=== PATIENT | female | born 1965 | race African-American/Black ===

== ENCOUNTER 2018-11-08 07:31 | Inpatient (IN) | payer MEDICARE, MEDICAID ==
[~2018-11-08] VITALS: Ht 162.6 cm; Wt 70.3 kg
[2018-11-08] MEDS ORDERED: ALBUTEROL (0.083%) 2.5MG/3ML NEB HHN STA (07:41)
[2018-11-08] MEDS ORDERED: MAGNESIUM 2 G PREMIX 50 ML IV STA (07:41)
[2018-11-08] MEDS ORDERED: IPRATROPIUM BROMIDE (0.02%) 0.5MG/2.5ML NEB HHN STA (07:41)
[2018-11-08] MEDS ORDERED: METHYLPREDNISOLONE SOD SUCC 125 MG/2 ML VIAL IV STA (07:41)
[2018-11-08] MEDS ORDERED: SODIUM CHLORIDE 0.9% 1000ML BAG (SEPSIS BOLUS) IV ONE (07:45)
[2018-11-08 08:03] LABS: BASOPHILS % 0.6 % (0.0-2.0); EOSINOPHILS % 9.6 % (0.0-5.0); HEMATOCRIT. 34.7 % (36.0-48.0); HEMOGLOBIN. 11.1 g/dL (12.0-16.0); LYMPHOCYTES % 25.3 % (20.0-50.0); MEAN CORPUSCULAR HEMOGLOBIN 21.7 pg (28.0-32.0); MEAN CORPUSCULAR VOLUME 67.4 fL (81.0-99.0); MEAN PLATELET VOLUME 10.1 fl (7.4-10.4); MONOCYTES % 10.5 % (2.0-8.0); PLATELET 136 x1000/uL (130-400); RED BLOOD CELL COUNT 5.14 mill/uL (4.2-5.4); RED CELL DISTRIBUTION WIDTH 16.4 % (11.6-14.6)
[2018-11-08 08:08] LABS: CHLORIDE 108 mEq/L (98-107)
[2018-11-08 08:09] LABS: INR 0.9; PROTHROMBIN TIME 9.5 sec (9.6-11.0)
[2018-11-08] MEDS ORDERED: AZITHROMYCIN 500 MG in DEXT 5% WATER 250 ML IV STA (08:36)
[2018-11-08] MEDS ORDERED: ACETAMINOPHEN 325MG TABLET PO PRN (09:45)
[2018-11-08] MEDS ORDERED: METHYLPREDNISOLONE SOD SUCC 40 MG/ML VIAL IV SCH (09:45)
[2018-11-08] MEDS ORDERED: IPRATROPIUM/ALBUTEROL 0.5-3(2.5)MG/3ML NEB HHN PRN (09:45)
[2018-11-08] MEDS ORDERED: ONDANSETRON HCL 4MG/2ML INJ IV PRN (09:45)
[2018-11-08] MEDS ORDERED: GUAIFENESIN-DM 200MG-20MG/10ML UDC PO PRN (09:45)
[2018-11-08 10:23] LABS: PLATELET ESTIMATE NORMAL
[2018-11-08 12:00] VITALS: BP 145/53
[2018-11-08 13:02] VITALS: BP 145/53
[2018-11-08] MEDS ORDERED: LEVO75TA MT (14:31)
[2018-11-08] MEDS ORDERED: ATOR10TA69 MT (14:31)
[2018-11-08] MEDS ORDERED: METF-815 PO (14:31)
[2018-11-08] MEDS ORDERED: LISI10TA5 MT (14:31)
[2018-11-08] MEDS ORDERED: ASPI-1158 MT (14:31)
[2018-11-08 16:00] VITALS: BP 127/54
[2018-11-08] MEDS: METHYLPREDNISOLONE SOD SUCC 40 MG/ML VIAL IV SCH ×2 (16:01→21:41)
[2018-11-08] MEDS: LEVOTHYROXINE SODIUM 75MCG TABLET PO SCH (16:02)
[2018-11-08] MEDS: ENOXAPARIN 40MG/0.4ML SYR SUBCUT SCH (16:03)
[2018-11-08] MEDS: IPRATROPIUM/ALBUTEROL 0.5-3(2.5)MG/3ML NEB HHN SCH ×2 (16:12→20:29)
[2018-11-08 17:18] LABS: BG BASE EXCESS -4.6 mmol/L (-2.0-2.0); BG CARBOXYHEMOGLOBIN 0.6 % (0.5-1.5); BG DEOXYHEMOGLOBIN 3.1 % (0.0-5.0); BG HCO3 ACT 20.1 mmol/L (22.0-26.0); BG METHEMOGLOBIN 0.4 % (0.0-1.5); BG OXYGEN SATURATION 96.9 % (92.0-98.5); BG OXYHEMOGLOBIN 95.9 % (94.0-97.0); BG PCO2 35.9 mmHg (35.0-45.0); BG PH 7.366 (7.350-7.450); BG PO2 92.2 mmHg (75.0-100.0); BG SAMPLE SITE RIGHT RADIAL; BG TOTAL HEMOGLOBIN 11.9 g/dL (12.0-18.0); BG VENT MODE NASAL CANNULA
[2018-11-08] MEDS: METFORMIN HCL 500MG TABLET PO SCH (18:08)
[2018-11-08] MEDS ORDERED: LEVO50TA MT (19:12)
[2018-11-08 20:00] VITALS: BP 130/64
[2018-11-08] MEDS: ATORVASTATIN CALCIUM 10MG TABLET PO SCH (21:41)
[2018-11-08] MEDS: GUAIFENESIN 600MG ER TABLET PO SCH (21:41)
[2018-11-09] VITALS: BP 128/69
[2018-11-09] MEDS: IPRATROPIUM/ALBUTEROL 0.5-3(2.5)MG/3ML NEB HHN SCH ×5 (00:31→20:09)
[2018-11-09 04:00] VITALS: BP 116/68
[2018-11-09 06:08] LABS: BASOPHILS % 0.2 % (0.0-2.0); HEMOGLOBIN. 10.8 g/dL (12.0-16.0); MEAN PLATELET VOLUME 9.9 fl (7.4-10.4); MONOCYTES % 2.8 % (2.0-8.0); PLATELET 137 x1000/uL (130-400); RED BLOOD CELL COUNT 4.92 mill/uL (4.2-5.4); RED CELL DISTRIBUTION WIDTH 16.6 % (11.6-14.6)
[2018-11-09] MEDS: METHYLPREDNISOLONE SOD SUCC 40 MG/ML VIAL IV SCH (06:16)
[2018-11-09] MEDS: METFORMIN HCL 500MG TABLET PO SCH ×2 (06:16→18:05)
[2018-11-09] MEDS: LEVOTHYROXINE SODIUM 75MCG TABLET PO SCH (06:19)
[2018-11-09 06:20] LABS: CHLORIDE 108 mEq/L (98-107)
[2018-11-09 08:00] VITALS: BP 128/67
[2018-11-09] MEDS: GUAIFENESIN 600MG ER TABLET PO SCH ×3 (08:54→20:19)
[2018-11-09] MEDS: LISINOPRIL 10MG TABLET PO SCH (08:55)
[2018-11-09] MEDS: LEVOTHYROXINE SODIUM 50MCG TABLET PO SCH ×2 (08:55→09:00)
[2018-11-09] MEDS ORDERED: AZITHROMYCIN 500 MG TABLET PO SCH (09:00)
[2018-11-09 12:00] VITALS: BP 113/59
[2018-11-09] MEDS: ENOXAPARIN 40MG/0.4ML SYR SUBCUT SCH (15:35)
[2018-11-09 16:00] VITALS: BP 116/55
[2018-11-09] MEDS ORDERED: MONTELUKAST SODIUM 10MG TABLET PO SCH (17:00)
[2018-11-09 19:32] LABS: CLARITY URINE CLEAR (CLEAR); COLOR URINE YELLOW (YELLOW); KETONES URINE NEGATIVE (NEGATIVE); LEUKOCYTE ESTERASE URINE NEGATIVE (NEGATIVE); NITRITE URINE NEGATIVE (NEGATIVE); OCCULT BLOOD URINE NEGATIVE (NEGATIVE); PROTEIN URINE NEGATIVE (NEGATIVE); SPECIFIC GRAVITY URINE 1.012 (1.005-1.030); UROBILINOGEN URINE 0.2 E.U./dL (0.2-1.0)
[2018-11-09 19:45] LABS: *AMPHETAMINES SCREEN URINE NEGATIVE (NEGATIVE); *BARBITURATES SCREEN URINE NEGATIVE (NEGATIVE); *BENZODIAZEPINES SCREEN URINE NEGATIVE (NEGATIVE); *COCAINE SCREEN URINE NEGATIVE (NEGATIVE); METHADONE URINE SCREEN NEGATIVE (NEGATIVE); OPIATES URINE SCREEN NEGATIVE (NEGATIVE)
[2018-11-09 19:46] LABS: CANNABINOID URINE SCREEN PRESUMTIVE POSITIVE (NEGATIVE); PHENCYCLIDINE URINE SCREEN NEGATIVE (NEGATIVE)
[2018-11-09 20:00] VITALS: BP 118/53
[2018-11-09] MEDS: ATORVASTATIN CALCIUM 10MG TABLET PO SCH (20:09)
[2018-11-09] MEDS: AMOXICILLIN/POTASSIUM CLAVULANATE 875/125MG TAB PO SCH (20:09)
[2018-11-09] MEDS: FAMOTIDINE 20MG TABLET PO SCH (20:09)
[2018-11-09] MEDS ORDERED: LORATADINE 10MG TABLET PO SCH (21:00)
[2018-11-09] MEDS ORDERED: AZELASTINE HCL 137MCG/SPRAY NASAL PUMP BOTHNSTRLS SCH (21:00)
[2018-11-10] VITALS: BP 114/63
[2018-11-10] MEDS: IPRATROPIUM/ALBUTEROL 0.5-3(2.5)MG/3ML NEB HHN SCH ×3 (00:20→09:04)
[2018-11-10 04:00] VITALS: BP 98/57
[2018-11-10] MEDS: METFORMIN HCL 500MG TABLET PO SCH (06:32)
[2018-11-10 06:49] LABS: BASOPHILS % 0.3 % (0.0-2.0); EOSINOPHILS % 0.1 % (0.0-5.0); HEMATOCRIT. 31.8 % (36.0-48.0); HEMOGLOBIN. 10.3 g/dL (12.0-16.0); LYMPHOCYTES % 17.1 % (20.0-50.0); MEAN CORPUSCULAR HEMOGLOBIN 21.6 pg (28.0-32.0); MEAN CORPUSCULAR VOLUME 66.9 fL (81.0-99.0); MEAN PLATELET VOLUME 10.6 fl (7.4-10.4); MONOCYTES % 8.2 % (2.0-8.0); NEUTROPHILS % 74.3 % (40.0-76.0); PLATELET 146 x1000/uL (130-400); RED BLOOD CELL COUNT 4.75 mill/uL (4.2-5.4); RED CELL DISTRIBUTION WIDTH 16.3 % (11.6-14.6)
[2018-11-10 06:54] LABS: CHLORIDE 106 mEq/L (98-107)
[2018-11-10] MEDS: GUAIFENESIN 600MG ER TABLET PO SCH (08:24)
[2018-11-10] MEDS: AMOXICILLIN/POTASSIUM CLAVULANATE 875/125MG TAB PO SCH (08:25)
[2018-11-10] MEDS: FAMOTIDINE 20MG TABLET PO SCH (08:25)
[2018-11-10] MEDS: LISINOPRIL 10MG TABLET PO SCH (09:00)
[2018-11-10] MEDS ORDERED: LEVOTHYROXINE SODIUM 50MCG TABLET PO SCH (09:00)
[2018-11-10] MEDS ORDERED: PREDNISONE 20MG TABLET PO SCH (09:00)
[2018-11-10 11:09] VITALS: BP 104/59
[2018-11-10 12:00] VITALS: BP 125/74
[2018-11-10 12:23] VITALS: BP 126/71
[2018-11-11] MEDS ORDERED: LEVOTHYROXINE SODIUM 75MCG TABLET PO SCH (09:00)
== END 2018-11-10 12:15 | disposition home or self-care (01) | DRG 189 ==
LOC: ER 07:36 → 5WST 08:37 → EDBEDREQTM 08:40 → EDBEDREQ 08:40 → ENRESERV 10:14
PROVIDERS: ADMIT Internal Medicine Nephrology; ATTEND Internal Medicine Nephrology
PROC: 5A09357 Assistance with Respiratory Ventilation, Less than 24 Consecutive Hours, Continuous Positive Airway Pressure (ICD-10-PCS; principal; 2018-11-09)
DX: J96.00 Acute respiratory failure, unspecified whether with hypoxia or hypercapnia (principal); J45.901 Unspecified asthma with (acute) exacerbation; R65.10 Systemic inflammatory response syndrome (SIRS) of non-infectious origin without acute organ dysfunction; J20.9 Acute bronchitis, unspecified; E03.9 Hypothyroidism, unspecified; D64.9 Anemia, unspecified; E78.5 Hyperlipidemia, unspecified; I10 Essential (primary) hypertension; E87.8 Other disorders of electrolyte and fluid balance, not elsewhere classified; E11.22 Type 2 diabetes mellitus with diabetic chronic kidney disease; E05.90 Thyrotoxicosis, unspecified without thyrotoxic crisis or storm; J31.0 Chronic rhinitis; Z82.49 Family history of ischemic heart disease and other diseases of the circulatory system; Z82.5 Family history of asthma and other chronic lower respiratory diseases; Z83.3 Family history of diabetes mellitus; Z87.891 Personal history of nicotine dependence; Z90.710 Acquired absence of both cervix and uterus; Z88.1 Allergy status to other antibiotic agents
CPT/HCPCS: 36415; 36600; 71045; 80048; 80305; 82375; 82805; 83605; 83880; 84145; 84484; 93005; 94640; 96365; 96366; 96368; 96375; 99285; J0456; J1650; J2920; J2930; J3475; J7030; J7060; J7512; J7611; J7620